=== PATIENT | male | born 1930 | race Caucasian/White ===

== ENCOUNTER 2017-12-16 14:30 | Inpatient (IN) | payer OTHER ==
[~2017-12-16] VITALS: Ht 157.5 cm; Wt 69.8 kg
[~2017-12-16 14:30] MED LIST: ALBUTEROL SULFAT3 ML NEB; ALPRAZOLAM0.25 MG PO; ALT5 PO; AMB5 PO; AMBIEN5 MG PO; ARICEPT5 MG PO; ASPIR LOW81 MG PO; ASPIR-LOW81 M1 PO; CELEXA10 MG PO; CENTRUM SILVER PO; CENTRUM SILVER1 CTB PO; CLEOCIN HCL300 MG PO; CLINDAMYCIN300 M1 PO; COL100 PO; DONEPEZIL HYDROC5 M2 PO; ECO81 PO; FINASTERIDE5 M1 PO; FISH OIL; FISH OIL1000 MG PO; FLO4 PO; FOLIC ACID1 MG PO; GABAPENTIN100 M2 PO; K10 PO; KETOPROFEN PO; KLOR-CON M2020 MEQ PO; L20 PO; LAC PO; LEVAQUIN750 MG PO; LOSARTAN POTASS50 M1 PO; MEGACE40 MG/ML PO; MEGL PO; MIRUD PO; MONTELUKAST SOD10 M1 PO; MULTIPLE VITAMI1 TA3 PO; NAPROXEN500 MG PO; NEU300 PO; NOR5 PO; PENTOXIFYL XR400 M1 PO; PENTOXIFYLLINE400 MG PO; PHEDML PO; PROAIR HFA0.09 MG/A1 INH; SING10 PO; SYMBICORT1 AE2; SYMBICORT1 AE2 IH; SYN75 PO; SYSTANE ULTRA OP; TAMSULOSIN HCL0.4 MG PO; TRAMADOL HCL50 MG PO; TRAZODONE50 M1 PO; ULT50 PO; VITAMIN; VITAMIN B12100 MCG PO; VITAMIN B121000 MCG PO; VITAMIN C1000 M2 PO; VOLTAREN75 MG PO; ZIT250 PO; ZOC20 PO; [UNRECOGNIZED DRUG - OTHER]
[2017-12-16 14:39] VITALS: Ht 157.5 cm; Wt 69.8 kg
[2017-12-16 16:28] LABS: BASOPHIL % 0.2 % (0-2); PLATELET COUNT 244 x10^3mcL (130-400)
[2017-12-16 16:29] LABS: RED CELL DISTRIBUTION WIDTH 15.4 % (11.5-14.5)
[2017-12-16 16:50] LABS: CALCIUM 8.4 mg/dL (8.5-10.1); CARBON DIOXIDE 30.5 mmol/L (21-32); CHLORIDE SERUM 99 mmol/L (98-107); CREATININE SERUM 0.9 mg/dL (0.7-1.3); GLUCOSE SERUM 109 mg/dL (74-106); POTASSIUM SERUM 4.4 mmol/L (3.5-5.1); SODIUM SERUM 137 mmol/L (136-145)
[2017-12-16 17:02] LABS: ALKALINE PHOSPHATASE 118 U/L (46-116); ALT/SGPT 146 U/L (16-63); AST/SGOT 67 U/L (15-37); BILIRUBIN TOTAL 0.3 mg/dL (0.20-1.00); TOTAL PROTEIN, SERUM 7.4 g/dL (6.4-8.2)
[2017-12-16] MEDS ORDERED: SYMBICORT1 AE3 IH (17:13)
[2017-12-16] MEDS ORDERED: CITALOPRAM HYDR10 M1 PO (17:17)
[2017-12-16] MEDS ORDERED: SIMVASTATIN20 M1 PO (17:25)
[2017-12-16 18:07] LABS: MAGNESIUM 2.4 mg/dL (1.8-2.4); PHOSPHOROUS 3.6 mg/dL (2.5-4.9)
[2017-12-16 18:09] LABS: CHOLESTEROL/HDL RATIO 3.1
[2017-12-16 19:17] VITALS: BP 128/58
[2017-12-16 19:39] LABS: microscopic required? YES; urine erythrocyte NEGATIVE (NEGATIVE)
[2017-12-16 21:46] VITALS: BP 124/61
[2017-12-16 22:32] VITALS: BP 124/61
[2017-12-17 06:09] LABS: BASOPHIL % 0.2 % (0-2); PLATELET COUNT 209 x10^3mcL (130-400)
[2017-12-17 06:21] LABS: RED CELL DISTRIBUTION WIDTH 15.3 % (11.5-14.5)
[2017-12-17 06:25] VITALS: BP 113/51
[2017-12-17 06:58] LABS: CALCIUM 8.2 mg/dL (8.5-10.1); CARBON DIOXIDE 28.6 mmol/L (21-32); CHLORIDE SERUM 101 mmol/L (98-107); CREATININE SERUM 0.9 mg/dL (0.7-1.3); GLUCOSE SERUM 101 mg/dL (74-106); POTASSIUM SERUM 4.1 mmol/L (3.5-5.1); SODIUM SERUM 137 mmol/L (136-145)
[2017-12-17 10:27] VITALS: BP 110/55
[2017-12-17 11:29] VITALS: BP 130/58
[2017-12-17 18:23] VITALS: BP 123/60
[2017-12-17 22:13] VITALS: BP 129/65
[2017-12-18 06:30] LABS: BASOPHIL % 0.7 % (0-2); PLATELET COUNT 209 x10^3mcL (130-400)
[2017-12-18 06:34] VITALS: BP 130/65
[2017-12-18 06:46] LABS: CHLORIDE SERUM 102 mmol/L (98-107); CREATININE SERUM 0.8 mg/dL (0.7-1.3); GLUCOSE SERUM 124 mg/dL (74-106); MAGNESIUM 2.4 mg/dL (1.8-2.4); PHOSPHOROUS 3.3 mg/dL (2.5-4.9); POTASSIUM SERUM 4.1 mmol/L (3.5-5.1); SODIUM SERUM 138 mmol/L (136-145)
[2017-12-18 06:59] LABS: RED CELL DISTRIBUTION WIDTH 14.9 % (11.5-14.5)
[2017-12-18 09:00] VITALS: BP 110/56
[2017-12-18 14:09] VITALS: BP 123/65
== END 2017-12-18 17:05 | disposition home or self-care (01) | DRG 177 ==
LOC: ED 14:30 → DU 17:13
PROVIDERS: Emergency Medicine; Family Medicine; Internal Medicine
PROC: 0DB68ZX Excision of Stomach, Via Natural or Artificial Opening Endoscopic, Diagnostic (ICD-10-PCS; 2017-12-17)
PROC: 0DB78ZX Excision of Stomach, Pylorus, Via Natural or Artificial Opening Endoscopic, Diagnostic (ICD-10-PCS; principal; 2017-12-17 12:30)
DX: J69.0 Pneumonitis due to inhalation of food and vomit (principal); K29.41 Chronic atrophic gastritis with bleeding; N17.0 Acute kidney failure with tubular necrosis; J96.01 Acute respiratory failure with hypoxia; I42.0 Dilated cardiomyopathy; I50.1 Left ventricular failure, unspecified; I10 Essential (primary) hypertension; E11.9 Type 2 diabetes mellitus without complications; F03.90 Unspecified dementia, unspecified severity, without behavioral disturbance, psychotic disturbance, mood disturbance, and anxiety; F32.9 Major depressive disorder, single episode, unspecified; F41.9 Anxiety disorder, unspecified; Z53.29 Procedure and treatment not carried out because of patient's decision for other reasons; E66.9 Obesity, unspecified; M94.0 Chondrocostal junction syndrome [Tietze]; J44.9 Chronic obstructive pulmonary disease, unspecified; I27.21 Secondary pulmonary arterial hypertension; Z88.0 Allergy status to penicillin; Z86.73 Personal history of transient ischemic attack (TIA), and cerebral infarction without residual deficits; Z85.46 Personal history of malignant neoplasm of prostate; Z79.899 Other long term (current) drug therapy; Z82.49 Family history of ischemic heart disease and other diseases of the circulatory system; Z90.79 Acquired absence of other genital organ(s)
CPT/HCPCS: 43235; 82962; 83880; C9113; J1200; J1610; J1956; J2250; J2310; J2405; J3010; J3490; J7050; J7613; J7620; J7644; Q0092; Q9967

== ENCOUNTER 2018-01-12 19:01 | Inpatient (IN) | payer OTHER ==
[~2018-01-12] VITALS: Ht 157.5 cm; Wt 66.5 kg
[~2018-01-12 19:01] MED LIST changes: -DICLOFENAC SODI75 MG PO; -MULTIPLE VITAMI1 TA3 PO; +NATURAL VITAM1000 MG; +NATURE'S BLEND1 TA4; -VITAMIN C1000 M2 PO
[2018-01-12 19:06] VITALS: Ht 157.5 cm; Wt 66.5 kg
[2018-01-12 20:07] LABS: BASOPHIL % 0.6 % (0-2); PLATELET COUNT 273 x10^3mcL (130-400)
[2018-01-12 20:08] LABS: RED CELL DISTRIBUTION WIDTH 15.8 % (11.5-14.5)
[2018-01-12 20:12] LABS: CALCIUM 9.1 mg/dL (8.5-10.1); CHLORIDE SERUM 102 mmol/L (98-107); GLUCOSE SERUM 166 mg/dL (74-106); SODIUM SERUM 137 mmol/L (136-145)
[2018-01-12 20:17] LABS: ALKALINE PHOSPHATASE 156 U/L (46-116); ALT/SGPT 114 U/L (16-63); AST/SGOT 54 U/L (15-37); BILIRUBIN TOTAL 0.4 mg/dL (0.20-1.00); TOTAL PROTEIN, SERUM 6.9 g/dL (6.4-8.2)
[2018-01-12 20:24] LABS: ALBUMIN 2.6 g/dL (3.4-5.0)
[2018-01-12 23:58] VITALS: BP 135/65
[2018-01-13 00:16] LABS: microscopic required? NO
[2018-01-13 00:43] LABS: UA SPECIFIC GRAVITY 1.015 (1.005-1.035); urine erythrocyte NEGATIVE (NEGATIVE)
[2018-01-13 01:50] LABS: MAGNESIUM 2.4 mg/dL (1.8-2.4); PHOSPHOROUS 3.5 mg/dL (2.5-4.9)
[2018-01-13 01:55] LABS: FREE T4 1.26 ng/dL (0.76-1.46); FREE THYROXINE INDEX 2.9 ug/dL (1.4-4.5); T4(THYROXINE) 8.4 ug/dL (4.7-13.3)
[2018-01-13 01:59] LABS: CHOLESTEROL/HDL RATIO 3.4
[2018-01-13 02:06] LABS: T3 TOTAL 0.73 ng/mL
[2018-01-13 03:00] VITALS: BP 135/65
[2018-01-13 05:43] VITALS: BP 104/55
[2018-01-13 06:59] LABS: BASOPHIL % 0.1 % (0-2); PLATELET COUNT 278 x10^3mcL (130-400); RED CELL DISTRIBUTION WIDTH 16.3 % (11.5-14.5)
[2018-01-13 07:08] LABS: CALCIUM 8.9 mg/dL (8.5-10.1); CARBON DIOXIDE 25.6 mmol/L (21-32); CHLORIDE SERUM 103 mmol/L (98-107); GLUCOSE SERUM 204 mg/dL (74-106); POTASSIUM SERUM 4.6 mmol/L (3.5-5.1); SODIUM SERUM 139 mmol/L (136-145)
[2018-01-13 10:01] VITALS: BP 115/70
[2018-01-13] MEDS ORDERED: DICLOFENAC SODI75 MG PO (14:04)
[2018-01-13 14:29] VITALS: BP 117/71
[2018-01-13 17:33] VITALS: BP 113/47
[2018-01-13 20:49] VITALS: BP 116/64
[2018-01-14 05:08] VITALS: BP 120/61
[2018-01-14 07:06] LABS: BASOPHIL % 0.1 % (0-2); PLATELET COUNT 260 x10^3mcL (130-400)
[2018-01-14 07:08] LABS: RED CELL DISTRIBUTION WIDTH 15.8 % (11.5-14.5)
[2018-01-14 07:15] LABS: CALCIUM 8.2 mg/dL (8.5-10.1); CARBON DIOXIDE 27.1 mmol/L (21-32); CHLORIDE SERUM 104 mmol/L (98-107); GLUCOSE SERUM 191 mg/dL (74-106); MAGNESIUM 2.3 mg/dL (1.8-2.4); PHOSPHOROUS 3.8 mg/dL (2.5-4.9); POTASSIUM SERUM 4.5 mmol/L (3.5-5.1); SODIUM SERUM 135 mmol/L (136-145)
[2018-01-14 08:57] VITALS: BP 123/46
[2018-01-14 12:52] VITALS: BP 95/48
[2018-01-14 16:05] VITALS: BP 104/42
[2018-01-14 21:07] VITALS: BP 112/55
[2018-01-15 05:14] VITALS: BP 110/52
[2018-01-15 06:54] LABS: PLATELET COUNT 232 x10^3mcL (130-400)
[2018-01-15 06:56] LABS: BASOPHIL % 0 % (0-2); RED CELL DISTRIBUTION WIDTH 15.9 % (11.5-14.5)
[2018-01-15 06:57] LABS: CARBON DIOXIDE 25.4 mmol/L (21-32); CHLORIDE SERUM 102 mmol/L (98-107); CREATININE SERUM 0.9 mg/dL (0.7-1.3); GLUCOSE SERUM 187 mg/dL (74-106); MAGNESIUM 2.3 mg/dL (1.8-2.4); PHOSPHOROUS 3.4 mg/dL (2.5-4.9); POTASSIUM SERUM 4.4 mmol/L (3.5-5.1); SODIUM SERUM 136 mmol/L (136-145)
[2018-01-15 09:27] VITALS: BP 106/52
[2018-01-15 13:19] VITALS: BP 100/46
[2018-01-15 16:02] VITALS: BP 106/47
[2018-01-15 20:23] VITALS: BP 128/60
[2018-01-16] MEDS ORDERED: LEVAQUIN750 MG PO (05:58)
[2018-01-16] MEDS ORDERED: CLEOCIN HCL300 MG PO (05:58)
[2018-01-16] MEDS ORDERED: LAC PO (05:59)
[2018-01-16] MEDS ORDERED: XARELTO15 M1 PO (06:27)
[2018-01-16 06:38] VITALS: BP 136/61
[2018-01-16 06:39] LABS: BASOPHIL % 0.1 % (0-2); PLATELET COUNT 230 x10^3mcL (130-400)
[2018-01-16 07:09] LABS: CALCIUM 8.1 mg/dL (8.5-10.1); CARBON DIOXIDE 26.8 mmol/L (21-32); CHLORIDE SERUM 102 mmol/L (98-107); CREATININE SERUM 0.8 mg/dL (0.7-1.3); GLUCOSE SERUM 185 mg/dL (74-106); MAGNESIUM 2.4 mg/dL (1.8-2.4); PHOSPHOROUS 3.1 mg/dL (2.5-4.9); POTASSIUM SERUM 4.3 mmol/L (3.5-5.1); SODIUM SERUM 135 mmol/L (136-145)
[2018-01-16] MEDS ORDERED: MEDDP PO (07:41)
[2018-01-16 09:00] VITALS: BP 136/61
[2018-01-16 09:38] VITALS: BP 107/49
== END 2018-01-16 10:30 | DRG 177 ==
LOC: ED 19:01 → DU 23:03
PROVIDERS: Emergency Medicine Emergency Medical Services; Family Medicine
DX: J69.0 Pneumonitis due to inhalation of food and vomit (principal); E43 Unspecified severe protein-calorie malnutrition; J96.00 Acute respiratory failure, unspecified whether with hypoxia or hypercapnia; I26.99 Other pulmonary embolism without acute cor pulmonale; J44.1 Chronic obstructive pulmonary disease with (acute) exacerbation; E86.0 Dehydration; I10 Essential (primary) hypertension; E78.5 Hyperlipidemia, unspecified; N40.0 Benign prostatic hyperplasia without lower urinary tract symptoms; E11.42 Type 2 diabetes mellitus with diabetic polyneuropathy; F41.9 Anxiety disorder, unspecified; M19.90 Unspecified osteoarthritis, unspecified site; H91.90 Unspecified hearing loss, unspecified ear; E03.9 Hypothyroidism, unspecified; D50.9 Iron deficiency anemia, unspecified; D72.829 Elevated white blood cell count, unspecified; F03.90 Unspecified dementia, unspecified severity, without behavioral disturbance, psychotic disturbance, mood disturbance, and anxiety; Z88.0 Allergy status to penicillin; Z86.73 Personal history of transient ischemic attack (TIA), and cerebral infarction without residual deficits; Z85.46 Personal history of malignant neoplasm of prostate; Z98.49 Cataract extraction status, unspecified eye; Z82.49 Family history of ischemic heart disease and other diseases of the circulatory system; Z68.26 Body mass index [BMI] 26.0-26.9, adult
CPT/HCPCS: 82962; 83880; 84439; 85378; 92526-GN; 92610; 94150; 97110-GP; 97116-GP; 97530-GP; G0378; J1644; J1815; J1940; J1956; J2920; J2930; J3490; J7030; J7512; J7620; J7633; Q0092; Q9967

== ENCOUNTER → 2018-01-12 | Outpatient (CLI) | payer OTHER ==
[~2018-01-12] MED LIST changes: +CITALOPRAM HYDR10 M1 PO; +DICLOFENAC SODI75 MG PO; +SIMVASTATIN20 M1 PO; +SYMBICORT1 AE3 IH
[2018-01-12 16:03] LABS: BASOPHIL % 0.6 % (0-2); PLATELET COUNT 303 x10^3mcL (130-400)
[2018-01-12 16:04] LABS: RED CELL DISTRIBUTION WIDTH 16.1 % (11.5-14.5)
[2018-01-12 16:10] LABS: ALKALINE PHOSPHATASE 141 U/L (46-116); ALT/SGPT 114 U/L (16-63); AST/SGOT 58 U/L (15-37); BILIRUBIN TOTAL 0.44 mg/dL (0.20-1.00); CARBON DIOXIDE 30.9 mmol/L (21-32); CHLORIDE SERUM 104 mmol/L (98-107); GLUCOSE SERUM 166 mg/dL (74-106); POTASSIUM SERUM 4.2 mmol/L (3.5-5.1); SODIUM SERUM 141 mmol/L (136-145); TOTAL PROTEIN, SERUM 7.2 g/dL (6.4-8.2)
[2018-01-12 16:11] LABS: ALBUMIN 2.6 g/dL (3.4-5.0)
== END | disposition home or self-care (01) ==
LOC: RD 14:50
PROVIDERS: Internal Medicine Pulmonary Disease
DX: J44.1 Chronic obstructive pulmonary disease with (acute) exacerbation (principal)
CPT/HCPCS: 83880

== ENCOUNTER 2018-05-31 16:33 | Inpatient (IN) | payer OTHER, MEDICAID ==
[~2018-05-31] VITALS: Ht 172.7 cm; Wt 68.5 kg
[~2018-05-31 16:33] MED LIST changes: +DICLOFENAC SODI75 MG PO; +MEDDP PO; +XARELTO15 M1 PO
[2018-05-31 17:23] LABS: BASOPHIL % 0.7 % (0-2); PLATELET COUNT 214 x10^3mcL (130-400); RED CELL DISTRIBUTION WIDTH 17.2 % (11.5-14.5)
[2018-05-31 17:28] LABS: CALCIUM 8.3 mg/dL (8.5-10.1); CARBON DIOXIDE 28.2 mmol/L (21-32); CHLORIDE SERUM 103 mmol/L (98-107); CREATININE SERUM 1.1 mg/dL (0.7-1.3); GLUCOSE SERUM 133 mg/dL (74-106); POTASSIUM SERUM 4.2 mmol/L (3.5-5.1); SODIUM SERUM 136 mmol/L (136-145)
[2018-05-31 17:38] LABS: ALKALINE PHOSPHATASE 105 U/L (46-116); ALT/SGPT 31 U/L (16-63); AST/SGOT 26 U/L (15-37); BILIRUBIN TOTAL 0.6 mg/dL (0.20-1.00); C REACTIVE PROTEIN 3.5 mg/dL (<=0.9); TOTAL PROTEIN, SERUM 6.4 g/dL (6.4-8.2)
[2018-05-31 17:42] LABS: T3 TOTAL 0.71 ng/mL
[2018-05-31 17:43] LABS: ALBUMIN 2.6 g/dL (3.4-5.0)
[2018-05-31 17:44] LABS: CK-MB 0.8 ng/mL (0-3.6)
[2018-05-31 18:05] LABS: ERYTHROCYTE SED RATE 57 mm/hr (0-20); FREE T4 1.28 ng/dL (0.76-1.46); FREE THYROXINE INDEX 2.9 ug/dL (1.4-4.5); T4(THYROXINE) 7.9 ug/dL (4.7-13.3)
[2018-05-31 19:32] LABS: microscopic required? YES; urine erythrocyte NEGATIVE (NEGATIVE)
[2018-05-31] MEDS ORDERED: EMERGEN-C 500500 MG PO (19:32)
[2018-05-31] MEDS ORDERED: ARICEPT5 MG PO (19:32)
[2018-05-31] MEDS ORDERED: THERALITH (19:33)
[2018-05-31] MEDS ORDERED: COLACE100 MG PO (19:33)
[2018-05-31] MEDS ORDERED: PROPECIA1 MG PO (19:34)
[2018-05-31] MEDS ORDERED: NEU300 PO (19:34)
[2018-05-31] MEDS ORDERED: FLEET ENEMA135 ML (19:36)
[2018-05-31] MEDS ORDERED: DULCOLAX5 M1 PO (19:36)
[2018-05-31] MEDS ORDERED: GOOD NEIGH1200 MG/15 (19:37)
[2018-05-31] MEDS ORDERED: APAP500 MG (19:39)
[2018-05-31 20:35] LABS: MAGNESIUM 2.2 mg/dL (1.8-2.4); PHOSPHOROUS 3.9 mg/dL (2.5-4.9)
[2018-05-31 20:36] LABS: CHOLESTEROL/HDL RATIO 2.6
[2018-05-31] MEDS ORDERED: XARELTO15 M1 PO (20:42)
[2018-05-31 20:47] VITALS: BP 143/43
[2018-05-31 21:00] VITALS: BP 143/43
[2018-05-31 21:06] LABS: AMPHETAMINE QUAL UR NONE DETECTED (See below)
[2018-06-01 05:29] VITALS: BP 113/50
[2018-06-01 07:29] LABS: BASOPHIL % 0.7 % (0-2); PLATELET COUNT 228 x10^3mcL (130-400)
[2018-06-01 07:32] LABS: CALCIUM 8.2 mg/dL (8.5-10.1); CARBON DIOXIDE 29.6 mmol/L (21-32); CHLORIDE SERUM 106 mmol/L (98-107); GLUCOSE SERUM 86 mg/dL (74-106); POTASSIUM SERUM 4.2 mmol/L (3.5-5.1); RED CELL DISTRIBUTION WIDTH 17.4 % (11.5-14.5); SODIUM SERUM 139 mmol/L (136-145)
[2018-06-01 09:41] VITALS: BP 123/54
[2018-06-01 13:46] VITALS: BP 119/56
[2018-06-01 17:57] VITALS: BP 113/57
[2018-06-01 21:27] VITALS: BP 110/52
[2018-06-02 05:08] VITALS: BP 128/62
[2018-06-02 07:56] LABS: CALCIUM 8.5 mg/dL (8.5-10.1); CARBON DIOXIDE 27.4 mmol/L (21-32); CHLORIDE SERUM 106 mmol/L (98-107); GLUCOSE SERUM 97 mg/dL (74-106); MAGNESIUM 2.1 mg/dL (1.8-2.4); PHOSPHOROUS 3.5 mg/dL (2.5-4.9); SODIUM SERUM 136 mmol/L (136-145)
[2018-06-02 08:03] LABS: BASOPHIL % 0.8 % (0-2); PLATELET COUNT 234 x10^3mcL (130-400)
[2018-06-02 08:50] VITALS: BP 121/57
[2018-06-02 12:10] VITALS: BP 152/59
[2018-06-02 13:17] VITALS: Ht 172.7 cm; Wt 68.5 kg
[2018-06-02 16:35] VITALS: BP 107/48
[2018-06-02 21:42] VITALS: BP 115/70
[2018-06-03 05:55] VITALS: BP 120/64
[2018-06-03 08:23] VITALS: BP 136/61
[2018-06-03 08:27] VITALS: BP 111/56
[2018-06-03 08:30] LABS: CALCIUM 8.3 mg/dL (8.5-10.1); CARBON DIOXIDE 24.2 mmol/L (21-32); CHLORIDE SERUM 106 mmol/L (98-107); GLUCOSE SERUM 101 mg/dL (74-106); MAGNESIUM 1.9 mg/dL (1.8-2.4); PHOSPHOROUS 3.5 mg/dL (2.5-4.9); POTASSIUM SERUM 3.9 mmol/L (3.5-5.1); SODIUM SERUM 138 mmol/L (136-145)
[2018-06-03 08:45] LABS: BASOPHIL % 0.7 % (0-2); PLATELET COUNT 230 x10^3mcL (130-400)
[2018-06-03 12:04] VITALS: BP 112/59
[2018-06-03 16:08] VITALS: BP 113/56
[2018-06-03 20:51] VITALS: BP 104/53
[2018-06-04 05:16] VITALS: BP 123/57
[2018-06-04 08:17] VITALS: BP 124/58
[2018-06-04 09:50] LABS: BASOPHIL % 0.5 % (0-2); PLATELET COUNT 218 x10^3mcL (130-400)
[2018-06-04 09:54] LABS: CALCIUM 8.6 mg/dL (8.5-10.1); CARBON DIOXIDE 28.1 mmol/L (21-32); CHLORIDE SERUM 107 mmol/L (98-107); CREATININE SERUM 1.1 mg/dL (0.7-1.3); GLUCOSE SERUM 126 mg/dL (74-106); MAGNESIUM 2.1 mg/dL (1.8-2.4); PHOSPHOROUS 2.9 mg/dL (2.5-4.9); POTASSIUM SERUM 3.9 mmol/L (3.5-5.1); SODIUM SERUM 139 mmol/L (136-145)
[2018-06-04 10:00] LABS: RED CELL DISTRIBUTION WIDTH 18.5 % (11.5-14.5)
[2018-06-04 13:13] VITALS: BP 108/42
[2018-06-04] MEDS ORDERED: LEVAQUIN750 MG PO (13:26)
[2018-06-04 13:38] VITALS: BP 108/42
[2018-06-04 17:31] VITALS: BP 125/46
== END 2018-06-04 20:20 | DRG 177 ==
LOC: ED 16:33 → DU 19:14
PROVIDERS: Family Medicine; Internal Medicine; Specialist
DX: J69.0 Pneumonitis due to inhalation of food and vomit (principal); E43 Unspecified severe protein-calorie malnutrition; G93.41 Metabolic encephalopathy; J96.21 Acute and chronic respiratory failure with hypoxia; N39.0 Urinary tract infection, site not specified; I69.354 Hemiplegia and hemiparesis following cerebral infarction affecting left non-dominant side; E03.9 Hypothyroidism, unspecified; I10 Essential (primary) hypertension; G62.9 Polyneuropathy, unspecified; N40.0 Benign prostatic hyperplasia without lower urinary tract symptoms; E78.5 Hyperlipidemia, unspecified; D64.9 Anemia, unspecified; Z66 Do not resuscitate; Z99.3 Dependence on wheelchair; Z99.81 Dependence on supplemental oxygen; Z68.23 Body mass index [BMI] 23.0-23.9, adult; Z85.46 Personal history of malignant neoplasm of prostate; F03.90 Unspecified dementia, unspecified severity, without behavioral disturbance, psychotic disturbance, mood disturbance, and anxiety
CPT/HCPCS: 36600; 82962; 83880; 84439; 92610-GN; 97110-GP; 97116-GP; 97530-GP; J1956; J3490; J7030; J7620; Q0092